=== PATIENT | female | born 1985 | race Caucasian/White ===

== ENCOUNTER 2016-12-17 05:40 | Day surgery (SDC) | payer OTHER ==
[2016-12-15 11:01] LABS: APPEARANCE,URINE CLEAR; BILIRUBIN,URINE NEGATIVE (NEGATIVE); GLUCOSE, URINE NEGATIVE (NEGATIVE); KETONES,URINE NEGATIVE (NEGATIVE); LEUKOCYTE ESTERASE,URINE NEGATIVE (NEGATIVE); NITRITE,URINE NEGATIVE (NEGATIVE); PROTEIN,URINE NEGATIVE (NEGATIVE); URINE SPECIFIC GRAVITY 1.018; UROBILINOGEN,URINE NEGATIVE mg/dL (<2.0)
[2016-12-15 11:47] LABS: HEMATOCRIT 40.4 % (36.0-47.0); HEMOGLOBIN 13.9 g/dL (12.0-15.5); HGB HCT DIFFERENCE 1.3; MEAN CORPUSCULAR HEMOGLOBIN 30.4 pg (27.0-33.4); MEAN CORPUSCULAR HGB CONC 34.5 g/dL (32.0-36.0); MEAN CORPUSCULAR VOLUME 88 fl (80-97); RED BLOOD COUNT 4.58 10^6/uL (3.72-5.28); RED CELL DISTRIBUTION WIDTH 13.3 % (11.5-14.0)
[2016-12-15 12:13] LABS: ALANINE AMINOTRANSFERASE 34 U/L (9-52); ALKALINE PHOSPHATASE 76 U/L (38-126); ANION GAP 9 (5-19); ASPARTATE AMINO TRANSFERASE 20 U/L (14-36); BILIRUBIN,TOTAL 0.6 mg/dL (0.2-1.3); BLOOD UREA NITROGEN 10 mg/dL (7-20); CALCIUM 9.7 mg/dL (8.4-10.2); CARBON DIOXIDE 29 mmol/L (22-30); CHLORIDE 103 mmol/L (98-107); CREATININE RESULT 0.72 mg/dL (0.52-1.25); GLUCOSE 75 mg/dL (75-110); POTASSIUM 4.4 mmol/L (3.6-5.0); SODIUM 140.5 mmol/L (137-145); TOTAL PROTEIN 7.8 g/dL (6.3-8.2)
[~2016-12-17 05:40] MED LIST: CEFAZOLIN 2 GM/D5W RTU 2 GM/50 ML RTUPB IV PRN; LACTATED RINGERS 1000 ML IV PRN; LIDOCAINE 0.5% INJ-PF (5 MG/ML) 50 ML SDV SUBCUT PRN
[2016-12-17] MEDS ORDERED: MIDAZOLAM 2 MG/2 ML INJ ONE (06:55)
[2016-12-17] MEDS ORDERED: FENTANYL CITRATE INJ/PF 250 MCG/5 ML AMPULE ONE (06:55)
[2016-12-17] MEDS ORDERED: HYDROMORPHONE HCL INJ/PF 2 MG/ML AMPULE ONE (06:55)
[2016-12-17] MEDS ORDERED: PROPOFOL INJ 200 MG/20 ML VIAL IV ONE (06:56)
[2016-12-17] MEDS ORDERED: ACETAMINOPHEN 100 ML IV ONE (06:56)
[2016-12-17] MEDS ORDERED: BUPIVACAINE HCL 0.25 % INJ/PF (2.5 MG/1 ML) 30 ML VIAL ONE (07:25)
[2016-12-17] MEDS ORDERED: PROMETHAZINE HCL INJ 25 MG/1 ML VIAL IV PRN ×2 (08:08)
[2016-12-17] MEDS ORDERED: DIPHENHYDRAMINE HCL 50 MG/ML VIAL IV PRN (08:08)
[2016-12-17] MEDS ORDERED: MEPERIDINE HCL/PF INJ 25 MG/1 ML DISP.SYRIN IV PRN (08:08)
[2016-12-17] MEDS ORDERED: MORPHINE SULFATE 10 MG/ML INJ IV PRN (08:08)
[2016-12-17] MEDS ORDERED: FENTANYL CITRATE INJ/PF 100 MCG/2 ML AMPUL IV PRN ×3 (08:08)
[2016-12-17] MEDS ORDERED: METHYLENE BLUE INJ/PF 10 MG/1 ML SDV ONE ×2 (09:19→10:08)
[2016-12-17] MEDS ORDERED: FENTANYL CITRATE INJ/PF 100 MCG/2 ML AMPUL ONE (11:52)
--- NOTE | 2016-12-17 11:57 | OPERATIVE REPORT E ---
Operative Report NAME: LUKE CHEEMA : 1985 AGE: 31Y DATE OF SURGERY: 12/17/2016 ROOM: PREOPERATIVE DIAGNOSES: 1. Recurrent SHAYNE 3. 2. Known history of pelvic adhesive disease. POSTOPERATIVE DIAGNOSES: 1. Recurrent SHAYNE 3. 2. Extensive pelvic adhesions. OPERATION: Robotic total laparoscopic hysterectomy with bilateral salpingectomy, extensive lysis of adhesions for 1 hour, and cystoscopy. SURGEON: YANY MALHOTRA M.D. ANESTHESIA: General endotracheal. ESTIMATED BLOOD LOSS: 75 mL. TISSUE REMOVED OR ALTERED: Uterus and fallopian tubes. FINDINGS: On speculum exam, there was a very foreshortened cervix. On robotic exam, there were dense adhesions of the omentum to the anterior fundal aspect of the uterus. The uterus was densely adhered to the anterior abdominal wall. There was evidence of old tubal ligation with Filshie clips. Normal-appearing ovaries. The posterior cul-de-sac was clear of adhesions. At cystoscopy, the bladder was intact without any evidence of cautery burn, and there were patent ureters bilaterally. There were no stitches in the bladder. PROCEDURE: After discussing risks, benefits and alternatives of the procedure and obtaining informed consent, patient was taken to the operating room, where general anesthesia was achieved. She was positioned in the dorsal lithotomy position, prepped and draped in the usual standard fashion. Borjas catheter was placed to keep the bladder drained. A speculum was placed in the vagina. The cervix was grasped with a single-tooth tenaculum. Stitches were placed at 3 and 9 o'clock on the cervix to tie it to the uterine manipulator. The cervix was serially dilated, and the uterine manipulator was placed. The VCare cup was tied to the cervix. The attention was then turned to the patient's abdomen. Each of the port sites was premedicated with 0.25% Marcaine; a total of 8 mL was used. An incision was made superior to the patient's umbilicus as the uterus had been palpated to be adhesed up out of the pelvis. The fascia was grasped with Que clamps and the peritoneal cavity entered sharply. Initially, an 8-mm trocar was placed. However, we were unable to maintain insufflation. Therefore, a 10-mm trocar with balloon was placed. The balloon was insufflated and adequate insufflation maintained. Prior to placing this, the fascia had been tagged with 0 Vicryl on either side, and this was attached to the trocar. The right and left lower quadrant trocars were placed under direct visualization for robotic use. These were 8 mm. Next, the 5-mm Air Seal was placed in the right upper quadrant under direct visualization. The patient was placed in Trendelenburg, and the robot was docked. The robotic scissors attached to monopolar cautery were placed for use in the surgeon's right hand, and the fenestrated bipolar graspers were placed for use in the surgeon's left hand. I then went to the operative console. The omentum was taken down with a combination of coagulation and cutting immediately adjacent to the anterior abdominal wall. In this way, the uterus was unroofed. The filmy adhesions were taken down sharply. The dense adhesions of the uterus to the anterior abdominal wall were coagulated with bipolar and then cut with monopolar cautery. This was done for the initial couple of centimeters. At that point, gaining visualization more laterally, it was felt most prudent to fill the bladder with methylene blue tinted saline; 180 mL was placed in the bladder which was then subsequently drained. The adhesions continued to be lysed in the above manner carefully with bipolar and monopolar cautery. A second episode of filling the bladder was performed when it was felt that the bladder may have been approached. The bladder was identified, and sharp dissection was used at that point to take down more bladder adhesions. During this time, while waiting for fluid to fill the bladder, bilateral salpingectomy had been performed by coagulating across the isthmic portions of fallopian tubes, undermining with bipolar cautery and then sharply excising these. These were handed out to the bedside psychiatric nursing assistant. The lysis of adhesions took approximately 1 hour before initiating the hysterectomy. After adequately visualizing that the round ligaments were interrupted with coagulation and cut with cautery, this further allowed the bladder to come down more. The utero-ovarian vessels were coagulated bilaterally and cut. The peritoneum was skeletonized posteriorly to allow for the ureters to fall out laterally during the process of the hysterectomy. The bladder was pushed down further as the dissection was continued. The uterine arteries were skeletonized. They were coagulated with bipolar and cut. Next, a circumferential incision was made starting posteriorly over the VCare cup. Using monopolar cautery, an incision was made into the vagina. This was carried around circumferentially after assuring that the bladder had been taken down adequately. The uterus was then delivered through the vagina and out. The scissors were removed and a needle corrugated fastener driver replaced for use in the surgeon's right hand. A V-Loc suture was introduced through the vagina up into the patient's peritoneal cavity inside a trocar. This was grasped by the gas welding machine operator, and the cuff was closed in a running fashion with the V-Loc. It was carried back over the cuff. The pelvis was irrigated and hemostasis assured. During this time, the patient had been given methylene blue as cystoscopy was planned due to dense adhesions and the consequent changes in anatomy. After closing the cuff, the suture was cut, and the bedside psychiatric nursing assistant undocked the right robotic trocar. She grasped the needle and removed the trocar and needle together. The patient was flattened out. The Borjas catheter was removed, and I performed cystoscopy with the findings noted above. The Borjas catheter was replaced after cystoscopy. I then went above and laparoscopically assured that the pelvis was still dry. There was no bleeding noted. The pelvis was surveyed under low pressure. The trocars were then removed under direct visualization. The fascia at the supraumbilical port was closed with 0 Vicryl. The skin was closed with 3-0 Monocryl in a subcuticular fashion. The patient was taken out of dorsal lithotomy, extubated, and to recovery in stable condition. All sponge, needle, lap, and instrument counts were correct x2. DICTATING PHYSICIAN: YANY MALHOTRA M.D. [id number] PHY#: [id number] ID: [id number] JOB#: [id number] ACCT: [id number] cc:YANY MALHOTRA M.D. > MTDD
[2016-12-17] MEDS ORDERED: MEPERIDINE HCL/PF INJ 25 MG/1 ML DISP.SYRIN ONE (12:02)
[2016-12-17] MEDS ORDERED: ONDANSETRON HCL INJ/PF 4 MG/2 ML SDV IV PRN ×2 (12:10→13:32)
[2016-12-17] MEDS ORDERED: OXYCODONE HCL IR 5 MG TABLET PO PRN ×2 (12:11)
[2016-12-17] MEDS ORDERED: ALBUTEROL SULFATE HFA (90 MCG/PUFF) 200 PUFF/8.5 GM MDI IH PRN (13:45)
[2016-12-17] MEDS ORDERED: LIDOCAINE 2% INJ-PF (20 MG/ML) 10 ML AMPUL ONE (14:26)
[2016-12-17] MEDS ORDERED: SUCCINYLCHOLINE CHLORIDE INJ 200 MG/10 ML VIAL ONE (14:26)
[2016-12-17] MEDS ORDERED: NEOSTIGMINE METHYLSULFATE 10 MG/10 ML VIAL ONE (14:26)
[2016-12-17] MEDS ORDERED: VECURONIUM BROMIDE INJ 10 MG VIAL IV ONE (14:26)
[2016-12-17] MEDS ORDERED: GLYCOPYRROLATE INJ 0.4 MG/2 ML VIAL ONE (14:26)
[2016-12-17] MEDS ORDERED: DEXAMETHASONE SOD PHOSPHATE INJ 4 MG/1 ML VIAL ONE (14:26)
[2016-12-17] MEDS ORDERED: ONDANSETRON HCL INJ/PF 4 MG/2 ML SDV ONE (14:26)
[2016-12-17] MEDS: HYDROMORPHONE HCL INJ/PF 2 MG/ML AMPULE IV PRN ×3 (14:42→21:17)
[2016-12-17] MEDS: ACETAMINOPHEN 100 ML IV SCH ×2 (14:43→21:16)
[2016-12-18] MEDS: HYDROMORPHONE HCL INJ/PF 2 MG/ML AMPULE IV PRN ×2 (00:26→06:11)
[2016-12-18] MEDS: ACETAMINOPHEN 100 ML IV SCH ×2 (03:27→10:20)
[2016-12-18 07:01] LABS: HEMATOCRIT 36.9 % (36.0-47.0); HEMOGLOBIN 12.9 g/dL (12.0-15.5); HGB HCT DIFFERENCE 1.8; MEAN CORPUSCULAR HEMOGLOBIN 31.1 pg (27.0-33.4); MEAN CORPUSCULAR VOLUME 89 fl (80-97); RED BLOOD COUNT 4.15 10^6/uL (3.72-5.28); RED CELL DISTRIBUTION WIDTH 13.5 % (11.5-14.0)
[2016-12-18 07:07] LABS: WHITE BLOOD COUNT 10.8 10^3/uL (4.0-10.5)
[2016-12-18] MEDS ORDERED: IBUPROFEN 800 MG TABLET PO ONE (09:15)
[2016-12-18] MEDS ORDERED: OXYCODONE HCL IR 5 MG TABLET PO ONE (09:15)
[2016-12-18] MEDS ORDERED: OXYCODONE-ACETAMINOPHEN 5-325 MG TABLET PO PRN ×2 (10:35)
[2016-12-18 12:13] VITALS: BP 102/57
[2016-12-18] MEDS ORDERED: IBUPROFEN 800 MG TABLET PO SCH (14:00)
--- NOTE | 2016-12-24 17:13 | DISCHARGE SUMMARY E ---
Discharge Summary NAME: LUKE CHEEMA : 1985 AGE: 31Y ADMITTED: 12/17/2016 DISCHARGED: 12/18/2016 INDICATIONS FOR ADMISSION : Recurrent SHAYNE-3. HOSPITAL COURSE: The patient is a 31-year-old female who had a history of two C-sections with known pelvic adhesive disease who also had SHAYNE-3 which was recurrent after LEEP done in the summer 2015. Her colposcopy as an outpatient did not show any invasive cancer and she desired definitive treatment with hysterectomy. She was admitted and underwent robotic hysterectomy with extensive lysis of adhesions, bilateral salpingectomy and cystoscopy on 12/17/2016. Her postoperative course was unremarkable. By the time of discharge, she was ambulating and tolerating p.o. She had passed flatus. Her vital signs were stable. Her laboratory data showed a hemoglobin of 12.9 and hematocrit 36.9 at discharge. Her ureters had been patent at the time of cystoscopy. Discharge medications had been given at the time of her preoperative visit in the clinic. She was discharged home on pelvic rest and light activity to follow up in 1 week, sooner should problems arise. DISCHARGE DIAGNOSES: 1. Pelvic adhesive disease. 2. SHAYNE-3, recurrent status post robotic total laparoscopic hysterectomy with bilateral salpingectomy and extensive lysis of adhesions. DICTATING PHYSICIAN: YANY MALHOTRA M.D. [id number] Y#: [id number] ID: [id number] JOB#: [id number] ACCT: [id number] cc:YANY MALHOTRA M.D. >
== END 2016-12-18 14:30 | disposition home or self-care (01) ==
LOC: OROUT 05:40 → 2N 12:49 → OROUT 12-18 14:30
PROVIDERS: ATTEND Specialist
PROC: 0UTC4ZZ Resection of Cervix, Percutaneous Endoscopic Approach (ICD-10-PCS; 2016-12-17)
PROC: 0UT74ZZ Resection of Bilateral Fallopian Tubes, Percutaneous Endoscopic Approach (ICD-10-PCS; 2016-12-17)
PROC: 0UN94ZZ Release Uterus, Percutaneous Endoscopic Approach (ICD-10-PCS; 2016-12-17)
PROC: 0UT94ZZ Resection of Uterus, Percutaneous Endoscopic Approach (ICD-10-PCS; principal; 2016-12-17 07:30)
DX: D06.9 Carcinoma in situ of cervix, unspecified (principal); N73.6 Female pelvic peritoneal adhesions (postinfective); E28.2 Polycystic ovarian syndrome; R73.03 Prediabetes; Z88.5 Allergy status to narcotic agent; Z79.84 Long term (current) use of oral hypoglycemic drugs
CPT/HCPCS: 86900; 86901; 36415 ×2; 86850; 85027 ×2; 81025; 80053; 81001; 88307 ×2; 58571; 49329; J2250; J1100; J3010 ×2; J3490 ×2; J2175; Q9968; J1170 ×2; J0330; J2405; J7120; J2704; J0690; J0131 ×2; 840